=== PATIENT | male | born 1970 | race Caucasian/White ===

== ENCOUNTER 2019-09-24 20:46 | Emergency (ER) | payer SELFPAY ==
[~2019-09-24] VITALS: Ht 170 cm; Wt 107.8 kg
--- OUTSIDE RECORDS SUMMARY | 2019-09-24 20:53 | XMS REPORT ---
Author Author Rajiv AGUILAR Organization [facility] Address [address] [place] [address] Care Team Providers Care Quality Assurance Test Program Manager Name Role Phone MELLISA AGUILAR Unavailable PROBLEMS Type Condition ICD9-CM Code PXT44-XN Code Onset Dates Condition S tatus SNOMED Code Problem Seasonal allergic rhinitis, unspecified allergic rhinitis trigger J30.2 Active 047341495 Problem Reflux esophagitis K21.0 Active 2 14583790 Problem Mild intermittent asthma without complication J45. 20 Active 539277389 ALLERGIES Substance Reaction Event Type Date Status Penicillins Unknown Non Drug Allergy October, Active SOCIAL HISTORY Never Assessed PLAN OF CARE Activity Details Follow Up prn Reason: VITAL SIGNS Height 67 in 2016-11-23 Weight 233.6 lbs 2016-11-23 Temperature 97.6 degrees Fahrenheit 2016-11-23 Heart Rate 84 bpm 2016-11-23 Respiratory Rate 20 2016-11-23 BMI 36.58 kg/m2 2016-11-23 Blood pressure systolic 124 mmHg 2016-11-23 Blood pressure diastolic 86 mmHg 2016-11-23 MEDICATIONS No Known Medications RESULTS Name Result Date Reference Range HEMOGLOBIN (IN HOUSE) 2016-11-23 HEMOGLOBIN 16.4 11.5 - 16 gm/dL Lot # [id number] Exp date 2016-12-25 PROCEDURES Procedure Date Ordered Result Body Site HEMOGLOBIN November 23, 2016 IMMUNIZATIONS No Known Immunizations MEDICAL (GENERAL) HISTORY Type Description Date Medical History asthma Surgical History nose surgery
--- OUTSIDE RECORDS SUMMARY | 2019-09-24 20:53 | XMS REPORT ---
Author Author Rajiv Avila Doctor Organization [facility] Address Unknown Phone Unavailable Care Team Providers Care Scientific Technical Writer Name Role Phone Migration, Doctor Unavailable Unavailable PROBLEMS Type Condition ICD9-CM Code ZAW49-VH Code Onset Dates Condition S tatus SNOMED Code Problem Reflux esophagitis K21.0 Active 2 23034621 Problem Seasonal allergic rhinitis, unspecified allergic rhinitis trigger J30.2 Active 184423931 Problem Mild intermittent asthma without complication J45. 20 Active [id number] ALLERGIES No Information ENCOUNTERS Encounter Location Date Diagnosis [facility] [address] [address] Nov, Wheezing R06.2 ; Screening f or diabetes mellitus (DM) Z13.1 ; Screening, lipid Z13.220 and Reflux esophagitis K21.0 [facility] [address] [facility] [id number] [address] [place] [address] October, Seasonal allergic rhinitis, unspecified allergic rhinitis trigger J30.2 and Dizziness R42 [facility] [address] [facility] [id number] [address] [place] [address] October, [facility] [address] [place] [id number] [address] [place] [address] Sep, [facility] [address] [facility] [id number] [address] [place] [address] Sep, [facility] [address] [facility] [id number] [address] [place] [address] Aug, [facility] [address] [facility] [id number] [address] [place] [address] Aug, [facility] [address] [place] [id number] [address] [place] [address] Aug, [facility] [address] [id number] [address] [place] [address] 07 Aug, 2013 [facility] [address] [id number] [address] [place] [address] May, [facility] [address] [id number] [address] [place] [address] May, [facility] [address] [id number] [address] [place] [address] Jan, [facility] [address] [id number] [address] [place] [address] Jan, [facility] [address] [id number] [address] [place] [address] Jan, [facility] [address] [id number] [address] [place] [address] Dec, [facility] [address] [id number] [address] [place] [address] Nov, [facility] [address] [id number] [address] [place] [address] Nov, [facility] [address] [id number] [address] [place] [address] Aug, [facility] [address] [id number] [address] [place] [address] Mar, [facility] [address] [id number] [address] [place] [address] October, [facility] [address] [id number] [address] [place] [address] Sep, [facility] [address] [id number] [address] [place] [address] Sep, IMMUNIZATIONS No Known Immunizations SOCIAL HISTORY Never Assessed REASON FOR VISIT E[place] [place] OF CARE VITAL SIGNS MEDICATIONS No Known Medications RESULTS No Results PROCEDURES No Known procedures INSTRUCTIONS MEDICATIONS ADMINISTERED No Known Medications MEDICAL (GENERAL) HISTORY Type Description Date Medical History asthma Surgical History nose surgery
--- OUTSIDE RECORDS SUMMARY | 2019-09-24 20:53 | XMS REPORT ---
Author Author Rajiv Couch Organization [facility] Address [address] [place] [address] Care Team Providers Care Fit Model Name Role Phone COSTA Couch Unavailable PROBLEMS Type Condition ICD9-CM Code QHO37-BD Code Onset Dates Condition S tatus SNOMED Code Problem Reflux esophagitis K21.0 Active 2 46391864 Problem Mild intermittent asthma without complication J45. 20 Active 580802194 Problem Mild depression F32.0 Active 3104 99643 Problem Obesity (BMI 30-39.9) E66.9 Active 546340453 Problem Seasonal allergic rhinitis, unspecified allergic rhinitis trigger J30.2 Active 155728989 Problem Cigarette nicotine dependence without complication F17.210 Active 11531509 Problem Cigarette nicotine dependence without complication F17.210 Active 99467484 Problem Sleep disorder breathing G47.30 Activ e 304634866 ALLERGIES No Information ENCOUNTERS Encounter Location Date Diagnosis [address] [address] [address] [place] [address] Aug, Mild depression F32.0 ; Obes ity (BMI 30-39.9) E66.9 ; Viral URI with cough J06.9 ; Influenza vaccine refused Z28.21 and Encounter for immunization Z23 [address] [place] [address] 28 Aug, 2019 [facility] [address] [place] [address] Mar, Synovial cyst of right popli teal space M71.21 and Acute pain of right knee M25.[address] [place] [address] Mar, Synovial cyst of right popli teal space M71.21 and Acute pain of right knee M25.561 [facility] [place] [address] [place] [address] Mar, Synovial cyst of right popli teal space M71.21 ; Cigarette nicotine dependence without complication F17.210 ; Sleep disorder breathing G47.30 ; Seasonal allergic rhinitis, 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 ; Reflux esophagitis K21.0 and Lipoma of upper extremity, unspecified laterality D17.20 [facility] [place] [facility] [address] [place] [address] Jan, Knee effusion, right M25.461 [facility] [address] [address] Nov, Wheezing R06.2 ; Screening for diabetes mellitus (DM) Z13.1 ; Screening, lipid Z13.220 and Reflux esophagitis K21.0 [facility] [address] [place] [address] October, Seasonal allergic rhinitis, unspecified allergic rhinitis trigger J30.2 and Dizziness R42 [facility] [address] [place] [address] [id number] [address] [place] [address] October, [facility] [address] [address] Sep, [facility] [address] [address] Sep, [facility] [address] [address] Aug, [facility] [address] [address] Aug, [facility] [address] [address] Aug, [facility] [address] [address] Aug, [facility] [address] [address] May, [facility] [address] [id number] [place] [address] May, [facility] [id number] [place] [address] Jan, [facility] [id number] [place] [address] Jan, [facility] [id number] [place] [address] Jan, [facility] [id number] [place] [address] Dec, [facility] [address] [address] Nov, [facility] [id number] [place] [address] Nov, [facility] [id number] [place] [address] Aug, [facility] [id number] [place] [address] Mar, [facility] [id number] [place] [address] October, [facility] [id number] [place] [address] Sep, [facility] [id number] [place] [address] Sep, IMMUNIZATIONS No Known Immunizations SOCIAL HISTORY Never Assessed REASON FOR VISIT PLAN OF CARE VITAL SIGNS Height 67 in 2013-08-08 Weight 220 lbs 2013-08-08 Temperature 97.8 degrees Fahrenheit 2013-08-08 Heart Rate 92 bpm 2013-08-08 Respiratory Rate 20 2013-08-08 Blood pressure systolic 130 mmHg 2013-08-08 Blood pressure diastolic 92 mmHg 2013-08-08 MEDICATIONS No Known Medications RESULTS No Results PROCEDURES No Known procedures INSTRUCTIONS MEDICATIONS ADMINISTERED No Known Medications MEDICAL (GENERAL) HISTORY Type Description Date Medical History Seasonal allergic rhinitis, unspecified allergic rhinitis trigger Medical History Mild intermittent asthma without complic ation Medical History Reflux esophagitis Surgical History nose surgery Hospitalization History see surgeries
--- OUTSIDE RECORDS SUMMARY | 2019-09-24 20:53 | XMS REPORT ---
Author Author Rajiv Avila Doctor Organization [facility] Address Unknown Phone Unavailable Care Team Providers Care Bicycle Rental Clerk Name Role Phone Migration, Doctor Unavailable Unavailable PROBLEMS Type Condition ICD9-CM Code GOA45-MH Code Onset Dates Condition S tatus SNOMED Code Problem Reflux esophagitis K21.0 Active 2 08924629 Problem Seasonal allergic rhinitis, unspecified allergic rhinitis trigger J30.2 Active 844978429 Problem Mild intermittent asthma without complication J45. 20 Active 865681283 ALLERGIES No Information ENCOUNTERS Encounter Location Date Diagnosis [facility] [address] [address] Nov, Wheezing R06.2 ; Screening f or diabetes mellitus (DM) Z13.1 ; Screening, lipid Z13.220 and Reflux esophagitis K21.0 [facility] [address] [facility] [id number] [address] [place] [address] October, Seasonal allergic rhinitis, unspecified allergic rhinitis trigger J30.2 and Dizziness R42 [facility] [address] [facility] [id number] [address] [place] [address] October, [facility] [address] [place] [id number] [address] [place] [address] Sep, [facility] [address] [facility] [id number] [address] [place] [address] Sep, [facility] [address] [facility] [id number] [address] [place] [address] Aug, [facility] [address] [facility] [id number] [address] [place] [address] Aug, [facility] [address] [place] [address] [id number] [address] [place] [address] Aug, [facility] [address] [id number] [address] [place] [address] 07 Aug, 2013 [facility] [address] [id number] [address] [place] [address] May, [facility] [address] [id number] [address] [place] [address] May, [facility] [address] [id number] [address] [place] [address] Jan, [facility] [address] [id number] [address] [place] [address] Jan, [facility] [address] [id number] [address] [place] [address] Jan, [facility] [address] [id number] [address] [place] [address] Dec, [facility] [address] [id number] [address] [place] [address] Nov, [facility] [address] [id number] [address] [place] [address] Nov, [facility] [address] [id number] [address] [place] [address] Aug, [facility] [address] [id number] [address] [place] [address] Mar, [facility] [address] [id number] [address] [place] [address] October, [facility] [address] [id number] [address] [place] [address] Sep, [facility] [address] [id number] [address] [place] [address] Sep, IMMUNIZATIONS No Known Immunizations SOCIAL HISTORY Never Assessed REASON FOR VISIT E[place] [place] PLAN OF CARE VITAL SIGNS MEDICATIONS No Known Medications RESULTS No Results PROCEDURES No Known procedures INSTRUCTIONS MEDICATIONS ADMINISTERED No Known Medications MEDICAL (GENERAL) HISTORY Type Description Date Medical History asthma Surgical History nose surgery
--- OUTSIDE RECORDS SUMMARY | 2019-09-24 20:53 | XMS REPORT ---
Author Author aRjiv Avila Doctor Organization [facility] Address Unknown Phone Unavailable Care Team Providers Care Steam Meter Reader Name Role Phone Migration, Doctor Unavailable Unavailable PROBLEMS Type Condition ICD9-CM Code PFC69-FI Code Onset Dates Condition S tatus SNOMED Code Problem Reflux esophagitis K21.0 Active 2 74029993 Problem Seasonal allergic rhinitis, unspecified allergic rhinitis trigger J30.2 Active 521694283 Problem Mild intermittent asthma without complication J45. 20 Active 776490640 ALLERGIES Substance Reaction Event Type Date Status Penicillins Unknown Non Drug Allergy Sep, Active ENCOUNTERS Encounter Location Date Diagnosis [facility] [address] [address] Nov, Wheezing R06.2 ; Screening f or diabetes mellitus (DM) Z13.1 ; Screening, lipid Z13.220 and Reflux esophagitis K21.0 [facility] [address] [address] October, Seasonal allergic rhinitis, unspecified allergic rhinitis trigger J30.2 and Dizziness R42 [facility] [address] [place] [id number] [address] [place] [address] October, [facility] [address] [place] [id number] [address] [place] [address] Sep, [facility] [address] [place] [id number] [address] [place] [address] Sep, [facility] [address] [address] Aug, [facility] [address] [place] [id number] [address] [place] [address] Aug, [facility] [address] [address] Aug, [facility] [address] [id number] [address] [place] [address] Aug, [facility] [address] [id number] [address] [place] [address] May, [facility] [address] [id number] [address] [place] [address] May, [facility] [address] [id number] [address] [place] [address] Jan, [facility] [address] [id number] [address] [place] [address] Jan, [facility] [address] [id number] [address] [place] [address] Jan, [facility] [address] [id number] [address] [place] [address] Dec, [facility] [address] [id number] [address] [place] [address] Nov, [facility] [address] [id number] [address] [place] [address] Nov, [facility] [address] [id number] [address] [place] [address] Aug, [facility] [address] [id number] [address] [place] [address] Mar, [facility] [address] [id number] [address] [place] [address] October, [facility] [address] [id number] [address] [place] [address] Sep, [facility] [address] [id number] [address] [place] [address] Sep, IMMUNIZATIONS No Known Immunizations SOCIAL HISTORY Never Assessed REASON FOR VISIT [place] [place]AN OF CARE VITAL SIGNS MEDICATIONS Medication Instructions Dosage Frequency Start Date End Date Duration S katarzyna Cefdinir 300 mg 1 Tablet by PO route 2 times per day Aug, Active Bactrim DS 800-160 mg 1 tablet by Oral route 2 times p er day for 10 day(s) Sep, Active RESULTS No Results PROCEDURES No Known procedures INSTRUCTIONS MEDICATIONS ADMINISTERED No Known Medications MEDICAL (GENERAL) HISTORY Type Description Date Medical History asthma Surgical History nose surgery
--- OUTSIDE RECORDS SUMMARY | 2019-09-24 20:53 | XMS REPORT ---
Author Author Rajiv GLASS Organization [facility] Address [address] [place] [address] Care Team Providers Care Transportation Maintenance Operator Name Role Phone AMADOU GLASS Unavailable PROBLEMS Type Condition ICD9-CM Code JWK79-SE Code Onset Dates Condition S tatus SNOMED Code Problem Reflux esophagitis K21.0 Active 2 80803699 Problem Mild intermittent asthma without complication J45. 20 Active 970276414 Problem Mild depression F32.0 Active 3104 66153 Problem Obesity (BMI 30-39.9) E66.9 Active 105424949 Problem Seasonal allergic rhinitis, unspecified allergic rhinitis trigger J30.2 Active 002043828 Problem Cigarette nicotine dependence without complication F17.210 Active 29067008 Problem Cigarette nicotine dependence without complication F17.210 Active 61438194 Problem Sleep disorder breathing G47.30 Activ e 002830032 ALLERGIES No Information ENCOUNTERS Encounter Location Date Diagnosis [address] [address] [place] [address] Aug, Mild depression F32.0 ; Obes ity (BMI 30-39.9) E66.9 ; Viral URI with cough J06.9 ; Influenza vaccine refused Z28.21 and Encounter for immunization Z23 [address] [address] [place] [address] 28 Aug, 2019 [facility] [address] [facility] [place] [address] Mar, Synovial cyst of right popli teal space M71.21 and Acute pain of right knee M25.561 [address] [address] [address] [place] [address] Mar, Synovial cyst of right popli teal space M71.21 and Acute pain of right knee M25.561 [address] [address] [place] [address] 04 Mar, 2019 Synovial cyst of right popli teal space M71.21 ; Cigarette nicotine dependence without complication F17.210 ; Sleep disorder breathing G47.30 ; Seasonal allergic rhinitis, 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 ; Reflux esophagitis K21.0 and Lipoma of upper extremity, unspecified laterality D17.20 [facility] [place] [facility] [address] [place] [address] Jan, Knee effusion, right M25.461 [facility] [id number] [place] [address] Nov, Wheezing R06.2 ; Screening for diabetes mellitus (DM) Z13.1 ; Screening, lipid Z13.220 and Reflux esophagitis K21.0 [facility] [address] [place] [address] [id number] [address] [place] [address] October, Seasonal allergic rhinitis, unspecified allergic rhinitis trigger J30.2 and Dizziness R42 [facility] [id number] [place] [address] October, [facility] [address] [address] Sep, [facility] [id number] [place] [address] Sep, [facility] [address] [address] 08 Aug, 2013 [facility] [id number] [place] [address] Aug, [facility] [address] [address] Aug, [facility] [address] [address] Aug, [facility] [id number] [place] [address] May, [facility] [address] [id number] [place] [address] May, [facility] [address] [id number] [place] [address] Jan, [facility] [address] [id number] [place] [address] Jan, [facility] [address] [id number] [place] [address] Jan, [facility] [id number] [place] [address] Dec, [facility] [address] [id number] [place] [address] Nov, [facility] [address] [id number] [place] [address] Nov, [facility] [address] [id number] [place] [address] Aug, [facility] [address] [id number] [place] [address] Mar, [facility] [address] [id number] [place] [address] October, [facility] [address] [id number] [place] [address] Sep, [facility] [address] [id number] [place] [address] Sep, IMMUNIZATIONS No Known Immunizations SOCIAL HISTORY Never Assessed REASON FOR VISIT PLAN OF CARE VITAL SIGNS MEDICATIONS No [...]
--- OUTSIDE RECORDS SUMMARY | 2019-09-24 20:53 | XMS REPORT ---
Author Author Rajiv JENKINS [facility] Address [address] [place] [address] Care Team Providers Care System Dispatcher Name Role Phone SAMI JENKINS Unavailable PROBLEMS Type Condition ICD9-CM Code CBH01-WI Code Onset Dates Condition S tatus SNOMED Code Problem Seasonal allergic rhinitis, unspecified allergic rhinitis trigger J30.2 Active 268605508 Problem Reflux esophagitis K21.0 Active 2 78077406 Problem Mild intermittent asthma without complication J45. 20 Active 631662346 ALLERGIES No Information SOCIAL HISTORY Never Assessed PLAN OF CARE VITAL SIGNS MEDICATIONS No Known Medications RESULTS No Results PROCEDURES No Known procedures IMMUNIZATIONS No Known Immunizations MEDICAL (GENERAL) HISTORY Type Description Date Medical History asthma Surgical History nose surgery
--- NOTE | 2019-09-24 21:09 | ED GI ---
General Chief Complaint: Abdominal/GI Problems Stated Complaint: CONSTIPATED,CRAMPS Nursing Triage Note: Patient states that he has been having abdominal pain and cramping for the last several days. Patient doesn't know when his last normal BM was. He took a bottle of magnesium citrate yesterday and had watery diarrhea. Patient states that his cramping and abdominal pain have persisted. Patient wanted to be checked out. Sepsis Screen: No Definite Risk Source of Information: Patient Exam Limitations: No Limitations History of Present Illness Date Seen by Provider: Sep 24, 2019 Time Seen by Provider: 20:55 Initial Comments The patient is a 49-year-old male who presents for evaluation of cramping to his abdomen and back over the last few days. He states that he was having some constipation and took some magnesium citrate yesterday. He states that he had a few large bowel movements and felt much better. He then had some watery diarrhea and then started to have some abdominal cramping and some back cramping. He states that the pain is actually a little bit better today but he still wanted to be evaluated. He was concerned that he could have a kidney infection and was also concerned that he could be dehydrated. He denies any significant past medical history or past surgical history. He is alert and oriented 4, calm, and appears to be in no distress. He denies nausea or vomiting, rectal bleeding, fevers or chills, dysuria, hematuria, chest pain or shortness of breath. Timing/Duration: 2-3 Days Severity/Quality: Moderate Location: Flank, Generalized Abdomen Radiation: No Radiation Activities at Onset: None Associated Symptoms: Denies Symptoms Allergies and Home Medications Allergies Coded Allergies: Penicillins (Verified Allergy, Severe, Anaphylaxis, 09/24/19) aspirin (Verified Allergy, Intermediate, 09/24/19) Induces asthma attack Patient Home Medication List Home Medication List Reviewed: Yes Review of Systems Review of Systems Constitutional: no symptoms reported EENTM: No Symptoms Reported Respiratory: No Symptoms Reported Cardiovascular: No Symptoms Reported Gastrointestinal: Abdominal Pain, Constipated Genitourinary: No Symptoms Reported Musculoskeletal: no symptoms reported Skin: no symptoms reported Psychiatric/Neurological: No Symptoms Reported Endocrine: No Symptoms Reported Hematologic/Lymphatic: No Symptoms Reported All Other Systems Reviewed Negative Unless Noted: Yes Past Xdcihvy-Hssevj-Rfzniv Hx Past Med/Social Hx: Reviewed Nursing Past Med/Soc Hx Patient Social History Alcohol Use: Denies Use Recreational Drug Use: No Smoking Status: Current Everyday Smoker Type Used: Cigarettes Recent Foreign Travel: No Contact w/Someone Who Travel: No Recent Infectious Disease Expo: No Physical Abuse: No Sexual Abuse: No Mistreated: No Fear: No Seasonal Allergies Seasonal Allergies: No Past Medical History Surgeries: No Respiratory: Yes Asthma Cardiac: No Neurological: No Genitourinary: No Gastrointestinal: No Musculoskeletal: No Endocrine: No HEENT: No Cancer: No Psychosocial: No Integumentary: No Physical Exam Vital Signs Vital Signs - First Documented 09/24/19 20:58 Temp 36.7 Pulse 96 Resp 18 B/P (MAP) 146/100 (115) Pulse Ox 100 O2 Delivery Room Air Capillary Refill : Less Than 3 Seconds Height/Weight/BMI Height: '" Weight: lbs. oz. kg; 37.00 BMI Method: General Appearance: WD/WN, no apparent distress HEENT: PERRL/EOMI, pharynx normal Neck: non-tender, full range of motion Respiratory: chest non-tender, lungs clear, normal breath sounds, no respiratory distress Cardiovascular: regular rate, rhythm, no edema, no JVD Gastrointestinal: normal bowel sounds, non tender, soft, no organomegaly, no p ulsatile mass, other (the patient has many palpable nodules underneath his skin which she states are a chronic finding and they are nontender) Extremities: normal range of motion, non-tender, no pedal edema Back: normal inspection, no CVA tenderness, no vertebral tenderness 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, no motor/sensory deficits, alert, normal mood/affect, oriented x 3 Skin: normal color, warm/dry Progress/Results/Core Measures Results/Orders Lab Results Laboratory Tests Test 09/24/19 21:23 Range/Units White Blood Count 9.7 4.3-11.0 10^3/uL Red Blood Count 5.54 4.35-5.85 10^6/uL Hemoglobin 16.3 13.3-17.7 G/DL Hematocrit 48 40-54 % Mean Corpuscular Volume 87 80-99 FL Mean Corpuscular Hemoglobin 29 25-34 PG Mean Corpuscular Hemoglobin Concent 34 32-36 G/DL Red Cell Distribution Width 13.1 10.0-14.5 % Platelet Count 280 130-400 10^3/uL Mean Platelet Volume 10.7 H 7.4-10.4 FL Neutrophils (%) (Auto) 62 42-75 % Lymphocytes (%) (Auto) 24 12-44 % Monocytes (%) (Auto) 10 0-12 % Eosinophils (%) (Auto) 3 0-10 % Basophils (%) (Auto) 1 0-10 % Neutrophils # (Auto) 6.0 1.8-7.8 X 10^3 Lymphocytes # (Auto) 2.3 1.0-4.0 X 10^3 Monocytes # (Auto) 1.0 0.0-1.0 X 10^3 Eosinophils # (Auto) 0.3 0.0-0.3 10^3/uL Basophils # (Auto) 0.1 0.0-0.1 10^3/uL Urine Color DARK YELLOW Urine Clarity CLEAR Urine pH 5.5 5-9 Urine Specific [place] >=1.030 1.016-1.022 Urine Protein NEGATIVE NEGATIVE Urine Glucose (UA) NEGATIVE NEGATIVE Urine Ketones NEGATIVE NEGATIVE Urine Nitrite NEGATIVE NEGATIVE Urine Bilirubin NEGATIVE NEGATIVE Urine Urobilinogen 0.2 < = 1.0 MG/DL Urine Leukocyte Esterase NEGATIVE NEGATIVE Urine RBC (Auto) NEGATIVE NEGATIVE Urine RBC NONE /HPF Urine WBC 5-10 H /HPF Urine Squamous Epithelial Cells 2-5 /HPF Urine Crystals NONE /LPF Urine Bacteria NEGATIVE /HPF Urine Casts NONE /LPF Urine Mucus NEGATIVE /LPF Urine Culture Indicated NO Sodium Level 141 135-145 MMOL/L Potassium Level 4.1 3.6-5.0 MMOL/L Chloride Level 99 98-107 MMOL/L Carbon Dioxide Level 28 21-32 MMOL/L Anion Gap 14 5-14 MMOL/L Blood Urea Nitrogen 22 H 7-18 MG/DL Creatinine 0.85 0.60-1.30 MG/DL Estimat Glomerular Filtration Rate > 60 BUN/Creatinine Ratio 26 Glucose Level 106 H 70-105 MG/DL Calcium Level 9.4 8.5-10.1 MG/DL Corrected Calcium 8.5-10.1 MG/DL Total Bilirubin 0.6 0.1-1.0 MG/DL Aspartate Amino Transf (AST/SGOT) 46 H 5-34 U/L Alanine Aminotransferase (ALT/SGPT) 67 H 0-55 U/L Alkaline Phosphatase 103 40-136 U/L Total Protein 8.0 6.4-8.2 GM/DL Albumin 4.6 H 3.2-4.5 GM/DL My Orders Orders - JOSETTE BRIDGES DO Cbc With Automated Diff (09/24/19 21:03) Comprehensive Metabolic Panel (09/24/19 21:03) Ua Culture If Indicated (09/24/19 21:03) Ed Iv/Invasive Line Start (09/24/19 21:03) Ns Iv 1000 Ml (Sodium Chloride 0.9%) (09/24/19 21:15) Ketorolac Injection (Toradol Injection) (09/24/19 21:15) Medications Given in ED Current Medications Medications Dose Ordered Sig/[place] Route Start Time Stop Time Status Last Admin Dose Admin Ketorolac Tromethamine 30 mg ONCE ONCE IVP 09/24/19 21:15 09/24/19 21:16 DC 09/24/19 21:24 30 MG Vital Signs/I&O 09/24/19 20:58 Temp 36.7 Pulse 96 Resp 18 B/P (MAP) 146/100 (115) Pulse Ox 100 O2 Delivery Room Air Blood Pressure Mean: 115 Progress Progress Note : Progress Note @2200 - patient updated on lab results which are acutely unremarkable. Advised the patient to drink plenty of fluids and to take Tylenol or ibuprofen at home for pain relief. Advised patient to follow-up with his PCP in the next 2-3 days and to return to the emergency Department immediately for new or worsening symptoms. The patient expresses verbal understanding and agreement with the plan and is stable for discharge. Departure Impression Primary Impression: Abdominal cramping Disposition: 01 HOME, SELF-CARE Condition: Stable Departure-Patient Inst. Decision time for Depature: 22:04 [facility]: [facility] Patient Instructions: Acute Abdomen (Belly Pain), Adult (DC), Dehydration, Adult (DC) Add. Discharge Instructions: Follow-up with your doctor in the next 1-2 days. Drink plenty of fluids at home. Take Tylenol or ibuprofen for cramping discomfort. Return to the ER for new or worsening symptoms. JOSETTE BRIDGES DO Sep 24, 2019 21:09
[2019-09-24] MEDS ORDERED: KETOROLAC 30 MG/ML VIAL IVP ONE (21:15)
[2019-09-24] MEDS ORDERED: NS IV 1000 ML 1,000 ML IV SCH (21:15)
[2019-09-24 21:45] LABS: BILIRUBIN,URINE NEGATIVE (NEGATIVE); CLARITY,URINE CLEAR; COLOR,URINE DARK YELLOW; GLUCOSE, URINE (UA) NEGATIVE (NEGATIVE); KETONES,URINE NEGATIVE (NEGATIVE); NITRITE,URINE NEGATIVE (NEGATIVE); PH,URINE 5.5 (5-9); PROTEIN,URINE NEGATIVE (NEGATIVE)
[2019-09-24 21:46] LABS: BACTERIA,URINE NEGATIVE /HPF; LEUKOCYTE ESTERASE ,URINE NEGATIVE (NEGATIVE)
[2019-09-24 21:47] LABS: HEMOGLOBIN 16.3 G/DL (13.3-17.7); MEAN CORPUSCULAR HEMOGLOBIN 29 PG (25-34); WHITE BLOOD COUNT 9.7 10^3/uL (4.3-11.0)
[2019-09-24 21:48] LABS: BASOPHILS # (AUTO) 0.1 10^3/uL (0.0-0.1); BASOPHILS % (AUTO) 1 % (0-10); EOSINOPHILS # (AUTO) 0.3 10^3/uL (0.0-0.3); EOSINOPHILS % (AUTO) 3 % (0-10); HEMATOCRIT 48 % (40-54); LYMPHOCYTES # (AUTO) 2.3 X 10^3 (1.0-4.0); LYMPHOCYTES % (AUTO) 24 % (12-44); MEAN CORPUSCULAR HGB CONC 34 G/DL (32-36); MEAN CORPUSCULAR VOLUME 87 FL (80-99); MEAN PLATELET VOLUME 10.7 FL (7.4-10.4); MONOCYTES % (AUTO) 10 % (0-12); NEUTROPHILS % (AUTO) 62 % (42-75); PLATELET COUNT 280 10^3/uL (130-400); RED CELL DISTRIBUTION WIDTH 13.1 % (10.0-14.5)
[2019-09-24 21:57] LABS: BILIRUBIN,TOTAL 0.6 MG/DL (0.1-1.0); BUN/CREATININE RATIO 26; CALCIUM 9.4 MG/DL (8.5-10.1); CARBON DIOXIDE 28 MMOL/L (21-32); CHLORIDE 99 MMOL/L (98-107); CREATININE SERUM 0.85 MG/DL (0.60-1.30); GFR ESTIMATED > 60; GLUCOSE 106 MG/DL (70-105); POTASSIUM 4.1 MMOL/L (3.6-5.0); SODIUM 141 MMOL/L (135-145)
[2019-09-24 21:58] LABS: ALANINE AMINOTRANSFERASE 67 U/L (0-55); ALBUMIN 4.6 GM/DL (3.2-4.5); ALKALINE PHOSPHATASE 103 U/L (40-136)
[2019-09-24 22:15] VITALS: BP 121/93
== END 2019-09-24 22:15 | disposition home or self-care (01) ==
LOC: EDUNIT# 20:46 → ER FS 20:48
DX: R10.9 Unspecified abdominal pain (principal); F17.210 Nicotine dependence, cigarettes, uncomplicated; Z88.0 Allergy status to penicillin; Z88.8 Allergy status to other drugs, medicaments and biological substances
CPT/HCPCS: 36415; 80053; 81000; 85025